=== PATIENT | female | born 1955 | race Caucasian/White ===

== ENCOUNTER → 2017-01-29 | Outpatient (CLI) | payer BC ==
[~2017-01-29] MED LIST: AMBIEN10 MG PO; B COMPLEX #11 TA1 PO; CALCIUM WITH V1 EAC1 PO; CARAFATE 1GM1 G PO; CEPHALEXIN500 M1 PO; CHERATUSSIN AC240 ML PO; CLA 1,000 MG1000 MG PO; DOMPERIDONE PO; LEADER MAGNESIU1 TAB PO; OMEPRAZOLE D/R20 MG PO; POTASSIUM GLUC500 M1 PO; PREDNISONE20 M1 PO; PREMARIN 0.60.625 M1 PO; XANAX0.5 M1 PO; ZITHROMAX 250M250 MG PO; ZOLPIDEM TART10 MG PO
== END ==
LOC: RAD 07:31
DX: R10.13 Epigastric pain (principal)
CPT/HCPCS: Q9967

== ENCOUNTER 2017-03-19 09:10 | Emergency (ER) | payer BC ==
[~2017-03-19] VITALS: Ht 162.6 cm; Wt 56.4 kg
[~2017-03-19 09:10] MED LIST changes: -CARAFATE 1GM1 G PO; -CEPHALEXIN500 M1 PO; -OMEPRAZOLE D/R20 MG PO; -ZOLPIDEM TART10 MG PO
[2017-03-19] MEDS ORDERED: CARAFATE 1GM1 G PO (09:16)
[2017-03-19] MEDS ORDERED: ZOLPIDEM TART10 MG PO (09:17)
[2017-03-19] MEDS ORDERED: OMEPRAZOLE D/R20 MG PO (09:17)
[2017-03-19] MEDS ORDERED: CEPHALEXIN500 M1 PO (10:20)
[2017-03-19 10:28] VITALS: BP 111/71
== END 2017-03-19 10:26 | disposition home or self-care (01) ==
LOC: ED 09:10
DX: S81.812A Laceration without foreign body, left lower leg, initial encounter (principal); W45.8XXA Other foreign body or object entering through skin, initial encounter

== ENCOUNTER → 2017-04-01 | Outpatient (CLI) | payer BC ==
[2017-03-19 10:28] VITALS: BP 111/71
[~2017-04-01] MED LIST changes: +CARAFATE 1GM1 G PO; +CEPHALEXIN500 M1 PO; +OMEPRAZOLE D/R20 MG PO; +ZOLPIDEM TART10 MG PO
== END ==
LOC: RAD 07:43
DX: R10.11 Right upper quadrant pain (principal)

== ENCOUNTER 2020-06-06 13:00 | Outpatient (RCR) | payer BC | END 2020-06-06 13:30 | disposition still patient (30) | LOC: OT 13:00 | DX: M79.602 Pain in left arm (principal) ==

== ENCOUNTER → 2022-11-24 | Outpatient (CLI) | payer BC | LOC: RAD 15:41 | DX: R05.9 Cough, unspecified (principal) ==

== ENCOUNTER → 2023-02-11 | Outpatient (CLI) | payer BC | LOC: AMSURD 13:23 | DX: Z01.818 Encounter for other preprocedural examination (principal) ==